=== PATIENT | male | born 1965 | race Caucasian/White ===

== ENCOUNTER 2018-03-17 19:14 | Emergency (ER) | payer SELFPAY ==
--- NOTE | 2018-03-17 19:55 | ERPHSYRPT ---
- History of Present Illness Time Seen by Provider: 03/17/18 19:40 Source: patient Exam Limitations: clinical condition Patient Subjective Stated Complaint: Urinary retention Triage Nursing Assessment: Patient ambulated back to ED and transferred self to bed. Patient A+O X 3. Patient's skin pink, warm and dry. Patient complains of urinary retension. Patient states he last voided at 0400 today. Patient also states he has an infection in his rectum that is the size of a golf ball and is scheduled to see Dr. Amol Benites on Tuesday. Patient was told by Dr. Plata today that if he is unable to urinate due to the infection pressing against his prostate he needs to come to ED and be assessed. Patient states his pain is a 4/ 10. Physician History: PATIENT HAS INABILITY TO URINATE SINCE 4AM TODAY. DENIES ABDOMINAL PAIN, FLANK PAIN OR FEVER. PRESENTLY BEING TREATED FOR PERIRECTAL ABSCESS WITH ANTIBIOTICS. Timing/Duration: today Activites at Onset: none Quality: other (HAS RECTAL PAIN ) Onset Location: other (RECTUM) Severity of Pain-Max: mild Severity of Pain-Current: mild Modifying Factors: Improves With: analgesics Associated Symptoms: other (UNABLE TO VOID) Sexual intercourse history: non-contributory Allergies/Adverse Reactions: shellfish derived Allergy (Verified 03/17/18 19:20) Hx Tetanus, Diphtheria Vaccination/Date Given: Yes (3 years ago) Hx Influenza Vaccination/Date Given: No Hx Pneumococcal Vaccination/Date Given: No Immunizations Up to Date: Yes - Past Medical History Pertinent Past Medical History: No - Past Surgical History Gastrointestinal: Hernia Repair Musculoskeletal: Orthopedic Surgery Other Surgical History: Left knee repair - Social History Smoking Status: Current every day smoker How long have you smoked: 30 Exposure to second hand smoke: Yes Drug Use: marijuana Patient Lives Alone: Yes - Review of Systems Constitutional: No Fever, No Chills Eyes: No Symptoms Ears, Nose, & Throat: No Symptoms Respiratory: No Symptoms, No Cough, No Dyspnea Cardiac: No Chest Pain, No Edema, No Syncope Abdominal/Gastrointestinal: No Abdominal Pain, No Nausea, No Vomiting, No Diarrhea Genitourinary Symptoms: Urinary Retention, No Dysuria Musculoskeletal: No Symptoms, No Back Pain, No Neck Pain Skin: No Rash Neurological: No Dizziness, No Focal Weakness, No Sensory Changes Psychological: No Symptoms Endocrine: No Symptoms All Other Systems: Reviewed and Negative - Nursing Vital Signs Nursing Vital Signs: Initial Vital Signs Temperature 99.4 F 03/17/18 19:22 Pulse Rate 107 H 03/17/18 19:22 Respiratory Rate 20 03/17/18 19:22 Blood Pressure 193/143 03/17/18 19:22 O2 Sat by Pulse Oximetry 95 03/17/18 19:22 Pain Scale Pain Intensity 4 - Physical Exam General Appearance: no apparent distress, alert Eye Exam: PERRL/EOMI Ears, Nose, Throat Exam: normal ENT inspection Neck Exam: normal inspection Respiratory Exam: normal breath sounds Cardiovascular Exam: regular rate/rhythm, normal heart sounds Gastrointestinal/Abdomen Exam: soft, normal bowel sounds (NONTENDER), distention (UP TO LEVEL OF UMBILICUS) Rectal Exam: normal rectal tone (THERE IS A PERIRECTAL SWELLING WITH TENDERNESS POSITION 3-6 OCLOCK POSITION) Male Genital Exam: normal genitalia Back Exam: normal inspection, No CVA tenderness Extremity Exam: normal inspection, normal range of motion, No pedal edema Neurologic Exam: alert, oriented x 3 Skin Exam: normal color SpO2 Interpretation: normal SpO2: 95 Ordered Tests: Active Orders 24 hr Category Date Time Status Catheter-Ebony Mccarty STAT Care 03/17/18 19:47 Active UA W/RFX UR CULTURE Stat Lab 03/17/18 20:02 Completed Lab/Rad Data: Laboratory Results 03/17/18 Range/Units 20:02 Urine Color YELLOW (YELLOW) Urine Appearance CLEAR (CLEAR) Urine pH 5.0 (5-6) Ur Specific [place] 1.017 (1.005-1.025) Urine Protein 100 (Negative) Urine Ketones SMALL (NEGATIVE) Urine Blood NEGATIVE (0-5) Xander/ul Urine Nitrite NEGATIVE (NEGATIVE) Urine Bilirubin NEGATIVE (NEGATIVE) Urine Urobilinogen NEGATIVE (0-1) mg/dL Ur Leukocyte Esterase NEGATIVE (NEGATIVE) Urine WBC (Auto) 0-2 (0-5) /HPF Urine RBC (Auto) NONE (0-2) /HPF U Epithel Cells (Auto) NONE (FEW) /HPF Urine Bacteria (Auto) NONE (NEGATIVE) /HPF Urine Mucus (Auto) SLIGHT (NEGATIVE) /HPF Urine Culture Reflexed NO (NO) Urine Glucose NEGATIVE (NEGATIVE) mg/dL - Progress Progress Note: 03/17/18 19:59 MCCARTY CATHETER INSERTION, 800ML URINE OUTPUT, LEG BAG APPLIED 03/17/18 20:39 Counseled pt/family regarding: diagnosis, need for follow-up - Departure Time of Disposition: 20:45 Departure Disposition: Home Clinical Impression: ACUTE URINARY RETENTION, PERIRECTAL ABSCESS Condition: Stable Critical Care Time: No Referrals: PAIGE PLATA [Primary Care Provider] - Additional Instructions: MAINTAIN MCCARTY WITH LEG BAG AND FOLLOWUP WITH PRIMARY CARE PROVIDER IN 3 DAYS. CONTINUE ANTIBIOTIC FOR PERIRECTAL ABSCESS. RETURN TO EMERGENCY FOR PROBLEMS.
[2018-03-17 20:31] LABS: Appearance CLEAR (CLEAR); Bilirubin NEGATIVE (NEGATIVE); Blood NEGATIVE Ery/ul (0-5); Glucose NEGATIVE (NEGATIVE); Ketones SMALL (NEGATIVE); Leukocyte Esterase NEGATIVE (NEGATIVE); Mucus SLIGHT /HPF (NEGATIVE); Nitrite NEGATIVE (NEGATIVE); Protein,Urine Dip 100 (Negative); Specific Gravity 1.017 (1.005-1.025); Urobilinogen NEGATIVE mg/dL (0-1); WBC 0-2 /HPF (0-5)
[2018-03-17 20:54] VITALS: BP 160/116; PULSE 100; O2SAT 98
== END 2018-03-17 20:55 | disposition home or self-care (01) ==
LOC: EDBD 19:14 → ED 19:14
DX: R33.9 Retention of urine, unspecified (principal); K61.1 Rectal abscess; K62.89 Other specified diseases of anus and rectum; Z72.0 Tobacco use; F12.90 Cannabis use, unspecified, uncomplicated
CPT/HCPCS: 51702; 81001; 99284

== ENCOUNTER 2021-07-12 23:16 | Observation (INO) | payer OTHER ==
[2021-07-12] MEDS ORDERED: Sodium Chloride 0.9% 1000 ML 1,000 ML IV SCH (23:45)
[2021-07-12] MEDS ORDERED: DUONEB 0.5-3 MG/3 ml Neb IH ONE (23:51)
[2021-07-12] MEDS ORDERED: solu-MEDROL 125 MG, Sterile H2O 10 ml 2 ML IV ONE ×2 (23:51)
--- NOTE | 2021-07-12 23:51 | ERPHSYRPT ---
- History of Present Illness Time Seen by Provider: 07/12/21 23:49 Source: patient Exam Limitations: no limitations Patient Subjective Stated Complaint: pt states he is short of breath for last 3 hours, states he is a smoker and has copd, was taking a nap and woke up short of breath Triage Nursing Assessment: pt is using pursed lip breathing. states he has no pain at this time. oxygen 96 % on two liters. Physician History: Hx COPD with increased SOBreath tonight. no CP. Whheezes bilaterally Timing/Duration: today Severity of Dyspnea-Max: moderate Severity of Dyspnea-Current: moderate Possible Cause: occasional episodes Modifying Factors: Improves With: albuterol nebulizer Allergies/Adverse Reactions: shellfish derived Allergy (Verified 03/17/18 19:20) Hx Tetanus, Diphtheria Vaccination/Date Given: No Hx Influenza Vaccination/Date Given: No Hx Pneumococcal Vaccination/Date Given: No Immunizations Up to Date: No Travel Risk - International Travel Have you traveled outside of the country in past 3 weeks: No - Coronavirus Screening Are you exhibiting any of the following symptoms?: No Close contact with a COVID-19 positive Pt in past 14-21 Days: No - Vaccine Status Have you recieved a Covid-19 vaccination: Yes Ar[employer]ologist: [employer] - Review of Systems Constitutional: No Fever, No Chills Eyes: No Symptoms Ears, Nose, & Throat: No Symptoms Respiratory: Cough, Dyspnea Cardiac: No Chest Pain, No Edema, No Syncope Abdominal/Gastrointestinal: No Abdominal Pain, No Nausea, No Vomiting, No Diarrhea Genitourinary Symptoms: No Dysuria Musculoskeletal: No Back Pain, No Neck Pain Skin: No Rash Neurological: No Dizziness, No Focal Weakness, No Sensory Changes Psychological: No Symptoms Endocrine: No Symptoms All Other Systems: Reviewed and Negative - Past Medical History Pertinent Past Medical History: No - Past Surgical History Gastrointestinal: Hernia Repair Musculoskeletal: Orthopedic Surgery Other Surgical History: Left knee repair - Social History Smoking Status: Current every day smoker How long have you smoked: 30 Exposure to second hand smoke: Yes Drug Use: marijuana Patient Lives Alone: Yes - Nursing Vital Signs Nursing Vital Signs: Initial Vital Signs Temperature 97.9 F 07/12/21 23:17 Pulse Rate 121 H 07/12/21 23:17 Respiratory Rate 18 07/12/21 23:17 Blood Pressure 166/124 07/12/21 23:17 O2 Sat by Pulse Oximetry 96 07/12/21 23:17 Pain Scale Pain Intensity 0 - Physical Exam General Appearance: no apparent distress, alert Eye Exam: PERRL/EOMI Neck Exam: normal inspection, supple Respiratory Exam: airway intact, accessory muscle use, wheezing Cardiovascular/Chest Exam: normal heart sounds, regular rate/rhythm Abdominal/Gastrointestinal Exam: soft, No tenderness, No distention, No mass Extremity Exam: non-tender, normal range of motion, normal inspection, no calf tenderness, no pedal edema Peripheral Pulses Exam: carotid (R): 2+, carotid (L): 2+, femoral (R): 2+, femoral (L): 2+, dorsalis-pedis (R): 2+, dorsalis-pedis (L): 2+ Neurologic Exam: alert, oriented x 3, cooperative, carburetor rebuilder II-XII nml as tested, sensation nml, No motor deficits Skin Exam: normal color, warm, No dry SpO2 Interpretation: borderline oxygenation SpO2: 96 O2 Delivery: Nasal Cannula - Course Nursing assessment & vital signs reviewed: Yes EKG Interpreted by Me: Sinus Tach, LAFB, Right Bundle Branch Block, Non-specific ST Changes - CT Exams Chest CT Interpretation: Tele-radiologist Report, Other (ground glass and cavitary lesionRUL. emphysema) Ordered Tests: Active Orders 24 hr Category Date Time Status Sample Wrapper STAT Care 07/12/21 23:52 Active EKG-ER Only STAT Care 07/12/21 23:51 Active IV Insertion STAT Care 07/12/21 23:51 Active Oxygen-ED Only Venti-Mask 24% Care 07/12/21 23:51 Active CHEST WITHOUT CONTRAST [CT] Routine Exams 07/13/21 00:38 Taken CBC W DIFF Stat Lab 07/12/21 23:56 Completed CMP Stat Lab 07/12/21 23:56 Completed NT PRO BNP Stat Lab 07/12/21 23:56 Completed TROPONIN Q3H Lab 07/12/21 23:56 Completed TROPONIN Q3H Lab 07/13/21 02:52 Ordered TROPONIN Q3H Lab 07/13/21 05:52 Ordered TROPONIN Q3H Lab 07/13/21 08:52 Ordered TROPONIN Q3H Lab 07/13/21 11:52 Ordered VENOUS BLOOD GAS Stat Lab 07/12/21 23:52 Completed Respiratory Therapy Assessment DAILY RT 07/13/21 00:04 Active Medication Summary Generic Name Dose Route Start Last Admin Trade Name Karely PRN Reason Stop Dose Admin Sodium Chloride 1,000 mls @ 100 mls/hr 07/12/21 23:45 07/13/21 00:21 Sodium Chloride 0.9% 1000 Ml IV 08/11/21 23:44 100 mls/hr .Q10H MICHELLE Administration Discontinued Medications Generic Name Dose Route Start Last Admin Trade Name Karely PRN Reason Stop Dose Admin Albuterol/Ipratropium 3 ml 07/12/21 23:51 07/13/21 00:02 Ipratropium/Albuterol Sulfate 3 Ml Ampul.Neb IH 07/12/21 23:52 3 ml STAT ONE Administration Albuterol/Ipratropium Confirm 07/13/21 00:00 Ipratropium/Albuterol Sulfate 3 Ml Ampul.Neb Administered 07/13/21 00:01 Dose 3 ml IH .STK-MED ONE Methylprednisolone Sodium 0 mg 07/12/21 23:51 07/13/21 00:20 Succinate 125 mg/ Sterile IV 07/12/21 23:52 125 mg Water 2 ml STAT ONE Administration Lorazepam Confirm 07/13/21 01:40 Lorazepam 1 Mg Tablet Administered 07/13/21 01:41 Dose 1 mg .ROUTE .STK-MED ONE Lorazepam 1 mg 07/13/21 01:43 07/13/21 01:44 Lorazepam 1 Mg Tablet PO 07/13/21 01:44 1 mg STAT ONE Administration Methylprednisolone Sodium Succinate Confirm 07/13/21 00:18 Methylprednis Sod Succ 125 Mg/2 Ml Vial Administered 07/13/21 00:19 Dose 125 mg .ROUTE .STK-MED ONE Sterile Water Confirm 07/13/21 00:18 Water For Injection,Sterile 10 Ml Vial Administered 07/13/21 00:19 Dose 10 ml IJ .STK-MED ONE Lab/Rad Data: Laboratory Result Diagrams 07/12/21 23:56 07/12/21 23:56 Laboratory Results 07/13/21 07/12/21 07/12/21 Range/Units 00:51 23:56 23:56 WBC (4.0-10.5) x10^3/uL RBC (4.1-5.6) x10^6/uL Hgb (12.5-18.0) g/dL Hct (42-50) % MCV (78-100) fL MCH (26-32) pg MCHC (32-36) g/dL RDW (11.5-14.0) % Plt Count (150-450) x10^3/uL MPV (7.5-11.0) fL Gran % (36.0-66.0) % Immature Gran % (Auto) (0.00-0.4) % Nucleat RBC Rel Count (0.00-0.1) % Eos # (Auto) (0-0.5) x10^3/uL Immature Gran # (Auto) (0.00-0.03) x10^3u/L Absolute Lymphs (auto) (1.0-4.6) x10^3/uL Absolute Monos (auto) (0.0-1.3) x10^3/uL Absolute Nucleated RBC (0.00-0.01) x10^3u/L Lymphocytes % (24.0-44.0) % Monocytes % (0.0-12.0) % Eosinophils % (0.00-5.0) % Basophils % (0.0-0.4) % Absolute Granulocytes (1.4-6.9) x10^3/uL Basophils # (0-0.4) x10^3/uL pO2/FiO2 Ratio % VBG pH (7.32-7.42) VBG pCO2 at Pat Temp (42-55) mm/Hg VBG pO2 at Pat Temp (25-40) mm/Hg VBG HCO3 (22-28) meq/L VBG O2 Sat (Hans) (95-100) VBG Base Excess (-2.0-2.0) VBG Hemoglobin VBG Carboxyhemoglobin (0.0-6.9) % T HGB POC Potassium (3.5-5.1) Sodium 138 (137-145) mmol/L Potassium 4.4 (3.5-5.1) mmol/L Chloride 96 L (98-107) mmol/L Carbon Dioxide 28 (22-30) mmol/L Anion Gap 17.4 H (5-15) MEQ/L BUN 2 L (9-20) mg/dL Creatinine 0.40 L (0.66-1.25) mg/dL Estimated GFR > 60.0 ML/MIN Glucose 108 H (74-106) mg/dL Calcium 8.9 (8.4-10.2) mg/dL Total Bilirubin 0.60 (0.2-1.3) mg/dL AST 42 (17-59) U/L ALT 29 (0-50) U/L Alkaline Phosphatase 104 (38-126) U/L Troponin I < 0.012 (0.000-0.034) ng/mL NT-Pro-B Natriuret Pep 281 (0-900) pg/mL Serum Total Protein 6.4 (6.3-8.2) g/dL Albumin 3.8 (3.5-5.0) g/dL Influenza Type A Ag NEGATIVE (NEGATIVE) Influenza Type B Ag NEGATIVE (NEGATIVE) RSV (PCR) NEGATIVE (Negative) SARS-CoV-2 (PCR) NEGATIVE (NEGATIVE) 07/12/21 07/12/21 Range/Units 23:56 23:52 WBC 10.5 (4.0-10.5) x10^3/uL RBC 5.10 (4.1-5.6) x10^6/uL Hgb 16.5 (12.5-18.0) g/dL Hct 48.7 (42-50) % MCV 95.5 (78-100) fL MCH 32.4 H (26-32) pg MCHC 33.9 (32-36) g/dL RDW 12.8 (11.5-14.0) % Plt Count 258 (150-450) x10^3/uL MPV 8.6 (7.5-11.0) fL Gran % 73.7 H (36.0-66.0) % Immature Gran % (Auto) 0.4 (0.00-0.4) % Nucleat RBC Rel Count 0.0 (0.00-0.1) % Eos # (Auto) 0.06 (0-0.5) x10^3/uL Immature Gran # (Auto) 0.04 H (0.00-0.03) x10^3u/L Absolute Lymphs (auto) 1.57 (1.0-4.6) x10^3/uL Absolute Monos (auto) 1.02 (0.0-1.3) x10^3/uL Absolute Nucleated RBC 0.00 (0.00-0.01) x10^3u/L Lymphocytes % 14.9 L (24.0-44.0) % Monocytes % 9.7 (0.0-12.0) % Eosinophils % 0.6 (0.00-5.0) % Basophils % 0.7 (0.0-0.4) % Absolute Granulocytes 7.78 H (1.4-6.9) x10^3/uL Basophils # 0.07 (0-0.4) x10^3/uL pO2/FiO2 Ratio 21.0 % VBG pH 7.47 H (7.32-7.42) VBG pCO2 at Pat Temp 42 (42-55) mm/Hg VBG pO2 at Pat Temp 52 H (25-40) mm/Hg VBG HCO3 30.6 H* (22-28) meq/L VBG O2 Sat (Hans) 88.9 L (95-100) VBG Base Excess 6.2 H (-2.0-2.0) VBG Hemoglobin 17.4 VBG Carboxyhemoglobin 9.4 H* (0.0-6.9) % T HGB POC Potassium 4.7 (3.5-5.1) Sodium (137-145) mmol/L Potassium (3.5-5.1) mmol/L Chloride (98-107) mmol/L Carbon Dioxide (22-30) mmol/L Anion Gap (5-15) MEQ/L BUN (9-20) mg/dL Creatinine (0.66-1.25) mg/dL Estimated GFR ML/MIN Glucose (74-106) mg/dL Calcium (8.4-10.2) mg/dL Total Bilirubin (0.2-1.3) mg/dL AST (17-59) U/L ALT (0-50) U/L Alkaline Phosphatase (38-126) U/L Troponin I (0.000-0.034) ng/mL NT-Pro-B Natriuret Pep (0-900) pg/mL Serum Total Protein (6.3-8.2) g/dL Albumin (3.5-5.0) g/dL Influenza Type A Ag (NEGATIVE) Influenza Type B Ag (NEGATIVE) RSV (PCR) (Negative) SARS-CoV-2 (PCR) (NEGATIVE) - Progress Progress: improved, re-examined Air Movement: good Progress Note: 07/13/21 02:15 discussed with pt and Dr. Nance and all agree best to place pt in on obs. with new O2 requirement. Blood Culture(s) Obtained: No Antibiotics given: No Discussed with : Rosemary Will see patient in: hospital (observation) Counseled pt/family regarding: lab results, diagnosis, need for follow-up, rad results - Departure Departure Disposition: Home Clinical Impression: COPD exacerbation, RUL cavitary lesion Condition: Good Critical Care Time: No Referrals: MARINE DENSON MD [Primary Care Provider] - Follow up/PCP as directed Instructions: Chronic Obstructive Pulmonary Disease
[2021-07-13] LABS: Absolute Neutrophil Ct (ANC) 7.78 x10^3/uL (1.4-6.9); Basophil (Absolute #) 0.07 x10^3/uL (0-0.4); Eosinophil % 0.6 % (0.00-5.0); Eosinophil (Absolute #) 0.06 x10^3/uL (0-0.5); Hematocrit 48.7 % (42-50); Hemoglobin 16.5 g/dL (12.5-18.0); Lymphocyte (Absolute #) 1.57 x10^3/uL (1.0-4.6); Lymphocytes % 14.9 % (24.0-44.0); Mean Cell Volume 95.5 fL (78-100); Mean Corpuscular Hemoglobin 32.4 pg (26-32); Mean Corpuscular Hgb Concent. 33.9 g/dL (32-36); Mean Platelet Volume 8.6 fL (7.5-11.0); Monocyte (Absolute #) 1.02 x10^3/uL (0.0-1.3); Monocytes % 9.7 % (0.0-12.0); Neutrophil % 73.7 % (36.0-66.0); Platelet Count 258 x10^3/uL (150-450); Red Cell Distribution Width 12.8 % (11.5-14.0); White Blood Count 10.5 x10^3/uL (4.0-10.5)
[2021-07-13] MEDS ORDERED: DUONEB 0.5-3 MG/3 ml Neb IH ONE
[2021-07-13 00:14] LABS: ALBUMIN 3.8 g/dL (3.5-5.0); ALKALINE PHOSPHATASE 104 U/L (38-126); ANION GAP 17.4 MEQ/L (5-15); CHLORIDE 96 mmol/L (98-107); Calcium 8.9 mg/dL (8.4-10.2); Carbon Dioxide 28 mmol/L (22-30); EST GLOMERULAR FILTRATION RATE > 60.0 ML/MIN; Glucose 108 mg/dL (74-106); NT PRO BNP 281 pg/mL (0-900); Potassium 4.4 mmol/L (3.5-5.1); SGOT/AST 42 U/L (17-59); SGPT/ALT 29 U/L (0-50); SODIUM 138 mmol/L (137-145); Total Protein 6.4 g/dL (6.3-8.2)
[2021-07-13] MEDS ORDERED: solu-MEDROL ONE ×2 (00:18→05:03)
[2021-07-13] MEDS ORDERED: Sodium Chloride 0.9% 1000 ML 1,000 ML ONE (00:18)
[2021-07-13] MEDS ORDERED: Sterile H2O 10 ml IJ ONE ×2 (00:18→05:04)
[2021-07-13 00:19] LABS: VBG BASE EXCESS 6.2 (-2.0-2.0); VBG HCO3- 30.6 meq/L (22-28); VBG HEMOGLOBIN 17.4; VBG O2 SATURATION 88.9 (95-100); VBG POTASSIUM 4.7 (3.5-5.1); VBG pH 7.47 (7.32-7.42)
[2021-07-13 00:20] LABS: VBG CARBOXYHEMOGLOBIN 9.4 % T HGB (0.0-6.9)
[2021-07-13 00:27] LABS: BLOOD UREA NITROGEN 2 mg/dL (9-20)
[2021-07-13 01:30] LABS: INFLUENZA A NEGATIVE (NEGATIVE); INFLUENZA B NEGATIVE (NEGATIVE); RESPIRATORY SYNCTIAL VIRUS NEGATIVE (Negative); SARS-CoV-2 Xpert Express NEGATIVE (NEGATIVE)
[2021-07-13] MEDS ORDERED: Ativan 1 MG ONE (01:40)
[2021-07-13] MEDS ORDERED: Ativan 1 MG PO ONE (01:43)
[2021-07-13] MEDS ORDERED: HUMULIN R SQ PRN (02:50)
[2021-07-13 02:53] LABS: Appearance CLEAR (CLEAR); Bilirubin NEGATIVE (NEGATIVE); Glucose NEGATIVE (NEGATIVE); Ketones SMALL-15 (NEGATIVE); Mucus SLIGHT /HPF (NEGATIVE); RBC TRACE-INTACT Ery/ul (0-5); Specific Gravity 1.025 (1.005-1.025); WBC 0-2 /HPF (0-5)
[2021-07-13 02:54] LABS: Bacteria NONE SEEN /HPF (NEGATIVE); Dipstick done @ ? MAIN LAB; Nitrite NEGATIVE (NEGATIVE); Protein,Urine Dip >=300 (Negative); Urine Cultured Indicated? YES; Urobilinogen 0.2 mg/dL (0-1)
[2021-07-13] MEDS: DUONEB 0.5-3 MG/3 ml Neb IH SCH ×6 (03:59→23:23)
[2021-07-13] MEDS ORDERED: Sodium Chloride 100ML MINI-BAG PLUS 0 ML IV ONE (05:04)
[2021-07-13] MEDS ORDERED: PIPERACILLIN/TAZOBACTAM IV ONE ×2 (05:04→05:56)
[2021-07-13] MEDS: solu-MEDROL 60 MG, Sterile H2O 10 ml 2 ML IV SCH ×6 (05:54→17:55)
[2021-07-13] MEDS ORDERED: Sodium Chloride 100ML MINI-BAG PLUS 100 ML IV ONE (05:56)
[2021-07-13] MEDS: PIPERACILLIN/TAZOBACTAM 4.5 GM in Sodium Chloride 100ML MINI-BAG PLUS 100 ML IV SCH ×3 (06:02→21:19)
[2021-07-13] MEDS: Advair Hfa 115/21 Common canister IH SCH ×2 (06:44→19:18)
[2021-07-13] MEDS: Ativan 2 MG/1 ML VIAL IV PRN ×5 (06:55→21:27)
--- NOTE | 2021-07-13 08:08 | XRAY ---
Indication: Short of breath and shaking. Multiple contiguous axial images obtained through the chest without contrast. Comparison: None Moderate diffuse pulmonary emphysema. Right perihilar patchy groundglass airspace disease greatest in the upper lobe. A more focal 3.5 x 1.8 cm right upper lobe noncalcified nodule with tiny cavitation and spiculated margins worrisome for malignancy versus infection. Scattered peripheral fibrosis/scarring. No effusion or pneumothorax. Heart not enlarged. Aorta is normal course and caliber. No pathologic mediastinal lymphadenopathy. Bony thorax intact with incidental old sternal fracture. Limited upper abdomen demonstrates 3.0 x 3.7 cm right and 1.4 x 1.4 cm left adrenal adenomas. Incidental fatty liver. Impression: 1. Right perihilar groundglass airspace disease. Suspicious right upper lobe noncalcified nodule as detailed worrisome for malignancy versus infection. 2. Pulmonary emphysema with scattered fibrosis/scarring. 3. Incidental bilateral adrenal adenomas, and fatty liver. Comment: Preliminary interpretation made by C. No critical discrepancy.
[2021-07-13] MEDS: Pepcid 20 MG VIAL IV SCH ×2 (10:03→21:19)
[2021-07-13] MEDS: Zithromax 500 MG/ 250 ML NaCl Premix 500 MG/250 ML IVPB IV SCH (10:04)
--- NOTE | 2021-07-13 13:40 | PCM.HP ---
History of Present Illness - Chief Complaint Chief Complaint: COPD Exacerbation History of Present Illness: is a 56 year old male patient of Dr Fitzgerald who presented to ER with shortness of breath. ER eval dg COPD exacerbation and Suspicious lung nodule RUL.Cough is productive of thick milky mucus and has improved with IV steroids and antibiotics. Appetite is good but has nausea when coughs and gags. PMHx includes - Medications & Allergies Home Medications: Home Medication List Albuterol Sulfate [Proair Respiclick] 4 puffs IH Q4H PRN PRN 07/13/21 [History Confirmed 07/13/21] Aspirin [Aspirin EC] 81 mg PO DAILY 07/13/21 [History Confirmed 07/13/21] Diltiazem HCl [Cardizem Cd] 240 mg PO DAILY 07/13/21 [History Confirmed 07/13/21] Fluticasone/Umeclidin/Vilanter [Trelegy Ellipta 200-62.5-25] 1 puff IH DAILY 07/13/21 [History Confirmed 07/13/21] Montelukast Sodium 10 mg [Singulair 10 MG] 10 mg PO DAILY 07/13/21 [History Confirmed 07/13/21] Allergies/Adverse Reactions: Allergies Allergy/AdvReac Type Severity Reaction Status Date / Time shellfish derived Allergy Severe Hives Verified 07/13/21 03:27 - Past Medical History Past Medical History: Yes Neurological History: No Pertinent History ENT History: No Pertinent History Cardiac History: Hypertension Respiratory History: Bronchitis, COPD Endocrine Medical History: No Pertinent History Musculoskelatal History: No Pertinent History GI Medical History: No Pertinent History History: No Pertinent History Pyscho-Social History: No Pertinent History Male Reproductive Disorders: No Pertinent History - Past Surgical History Past Surgical History: Yes Neuro Surgical History: No Pertinent History Cardiac History: No Pertinent History Respiratory Surgery: No Pertinent History GI Surgical History: Hernia Repair Genitourinary Surgical Hx: No Pertinent History Musculskeletal Surgical Hx: Orthopedic Surgery Male Surgical History: No Pertinent History Other Surgical History: Left knee repair - Social History Smoking Status: Current every day smoker How long have you smoked: 40 years Exposure to second hand smoke: Yes Alcohol: Daily Drug Use: marijuana - Physical Exam Vital Signs: Vital Signs - 24 hr Temp Pulse Resp BP Pulse Ox 07/13/21 11:31 98.0 F 103 H 16 152/77 96 07/13/21 10:39 112 H 24 99 07/13/21 09:58 103 H 22 07/13/21 07:42 97.9 F 95 H 16 181/78 94 L 07/13/21 06:55 100 H 30 H 07/13/21 06:51 90 22 95 07/13/21 03:59 98 H 24 95 07/13/21 03:16 97.8 F 100 H 20 212/98 93 L 07/13/21 03:00 97 07/13/21 02:17 96 07/13/21 02:00 102 H 21 149/100 97 07/13/21 01:00 103 H 21 147/119 95 07/13/21 00:17 110 H 18 147/119 95 07/13/21 00:04 108 H 24 95 07/12/21 23:17 97.9 F 121 H 22 166/124 96 Results - Labs Lab/Micro Results: Lab Results-Last 24 Hours 07/12/21 07/12/21 07/12/21 Range/Units 23:52 23:56 23:56 WBC 10.5 (4.0-10.5) x10^3/uL RBC 5.10 (4.1-5.6) x10^6/uL Hgb 16.5 (12.5-18.0) g/dL Hct 48.7 (42-50) % MCV 95.5 (78-100) fL MCH 32.4 H (26-32) pg MCHC 33.9 (32-36) g/dL RDW 12.8 (11.5-14.0) % Plt Count 258 (150-450) x10^3/uL MPV 8.6 (7.5-11.0) fL Gran % 73.7 H (36.0-66.0) % Immature Gran % (Auto) 0.4 (0.00-0.4) % Nucleat RBC Rel Count 0.0 (0.00-0.1) % Eos # (Auto) 0.06 (0-0.5) x10^3/uL Immature Gran # (Auto) 0.04 H (0.00-0.03) x10^3u/L Absolute Lymphs (auto) 1.57 (1.0-4.6) x10^3/uL Absolute Monos (auto) 1.02 (0.0-1.3) x10^3/uL Absolute Nucleated RBC 0.00 (0.00-0.01) x10^3u/L Lymphocytes % 14.9 L (24.0-44.0) % Monocytes % 9.7 (0.0-12.0) % Eosinophils % 0.6 (0.00-5.0) % Basophils % 0.7 (0.0-0.4) % Absolute Granulocytes 7.78 H (1.4-6.9) x10^3/uL Basophils # 0.07 (0-0.4) x10^3/uL pO2/FiO2 Ratio 21.0 % VBG pH 7.47 H (7.32-7.42) VBG pCO2 at Pat Temp 42 (42-55) mm/Hg VBG pO2 at Pat Temp 52 H (25-40) mm/Hg VBG HCO3 30.6 H* (22-28) meq/L VBG O2 Sat (Hans) 88.9 L (95-100) VBG Base Excess 6.2 H (-2.0-2.0) VBG Hemoglobin 17.4 VBG Carboxyhemoglobin 9.4 H* (0.0-6.9) % T HGB POC Potassium 4.7 (3.5-5.1) Sodium 138 (137-145) mmol/L Potassium 4.4 (3.5-5.1) mmol/L Chloride 96 L (98-107) mmol/L Carbon Dioxide 28 (22-30) mmol/L Anion Gap 17.4 H (5-15) MEQ/L BUN 2 L (9-20) mg/dL Creatinine 0.40 L (0.66-1.25) mg/dL Estimated GFR > 60.0 ML/MIN Glucose 108 H (74-106) mg/dL Calcium 8.9 (8.4-10.2) mg/dL Total Bilirubin 0.60 (0.2-1.3) mg/dL AST 42 (17-59) U/L ALT 29 (0-50) U/L Alkaline Phosphatase 104 (38-126) U/L Troponin I (0.000-0.034) ng/mL NT-Pro-B Natriuret Pep 281 (0-900) pg/mL Serum Total Protein 6.4 (6.3-8.2) g/dL Albumin 3.8 (3.5-5.0) g/dL Urinalys Dipstick Clnc Urine Color (YELLOW) Urine Appearance (CLEAR) Urine pH (5-6) Ur Specific [place] (1.005-1.025) POC Urine Protein Conf (Negative) Urine Ketones (NEGATIVE) Urine Nitrite (NEGATIVE) Urine Bilirubin (NEGATIVE) Urine Urobilinogen (0-1) mg/dL Urine Leukocytes (NEGATIVE) Urine WBC (Auto) (0-5) /HPF Urine RBC (Auto) (0-2) /HPF U Epithel Cells (Auto) (FEW) /HPF Urine Bacteria (Auto) (NEGATIVE) /HPF Urine RBC (0-5) Xander/ul Urine Mucus (Auto) (NEGATIVE) /HPF Ur Culture Indicated? Urine Glucose (NEGATIVE) mg/dL Influenza Type A Ag (NEGATIVE) Influenza Type B Ag (NEGATIVE) RSV (PCR) (Negative) SARS-CoV-2 (PCR) (NEGATIVE) 07/12/21 07/13/21 07/13/21 Range/Units 23:56 00:51 02:17 WBC (4.0-10.5) x10^3/uL RBC (4.1-5.6) x10^6/uL Hgb (12.5-18.0) g/dL Hct (42-50) % MCV (78-100) fL MCH (26-32) pg MCHC (32-36) g/dL RDW (11.5-14.0) % Plt Count (150-450) x10^3/uL MPV (7.5-11.0) fL Gran % (36.0-66.0) % Immature Gran % (Auto) (0.00-0.4) % Nucleat RBC Rel Count (0.00-0.1) % Eos # (Auto) (0-0.5) x10^3/uL Immature Gran # (Auto) (0.00-0.03) x10^3u/L Absolute Lymphs (auto) (1.0-4.6) x10^3/uL Absolute Monos (auto) (0.0-1.3) x10^3/uL Absolute Nucleated RBC (0.00-0.01) x10^3u/L Lymphocytes % (24.0-44.0) % Monocytes % (0.0-12.0) % Eosinophils % (0.00-5.0) % Basophils % (0.0-0.4) % Absolute Granulocytes (1.4-6.9) x10^3/uL Basophils # (0-0.4) x10^3/uL pO2/FiO2 Ratio % VBG pH (7.32-7.42) VBG pCO2 at Pat Temp (42-55) mm/Hg VBG pO2 at Pat Temp (25-40) mm/Hg VBG HCO3 (22-28) meq/L VBG O2 Sat (Hans) (95-100) VBG Base Excess (-2.0-2.0) VBG Hemoglobin VBG Carboxyhemoglobin (0.0-6.9) % T HGB POC Potassium (3.5-5.1) Sodium (137-145) mmol/L Potassium (3.5-5.1) mmol/L Chloride (98-107) mmol/L Carbon Dioxide (22-30) mmol/L Anion Gap (5-15) MEQ/L BUN (9-20) mg/dL Creatinine (0.66-1.25) mg/dL Estimated GFR ML/MIN Glucose (74-106) mg/dL Calcium (8.4-10.2) mg/dL Total Bilirubin (0.2-1.3) mg/dL AST (17-59) U/L ALT (0-50) U/L Alkaline Phosphatase (38-126) U/L Troponin I < 0.012 (0.000-0.034) ng/mL NT-Pro-B Natriuret Pep (0-900) pg/mL Serum Total Protein (6.3-8.2) g/dL Albumin (3.5-5.0) g/dL Urinalys Dipstick Clnc MAIN LAB Urine Color YELLOW (YELLOW) Urine Appearance CLEAR (CLEAR) Urine pH 7.0 (5-6) Ur Specific [place] 1.025 (1.005-1.025) POC Urine Protein Conf >=300 (Negative) Urine Ketones SMALL-15 (NEGATIVE) Urine Nitrite NEGATIVE (NEGATIVE) Urine Bilirubin NEGATIVE (NEGATIVE) Urine Urobilinogen 0.2 (0-1) mg/dL Urine Leukocytes NEGATIVE (NEGATIVE) Urine WBC (Auto) 0-2 (0-5) /HPF Urine RBC (Auto) NONE (0-2) /HPF U Epithel Cells (Auto) NONE (FEW) /HPF Urine Bacteria (Auto) NONE SEEN (NEGATIVE) /HPF Urine RBC TRACE-INTACT (0-5) Xander/ul Urine Mucus (Auto) SLIGHT (NEGATIVE) /HPF Ur Culture Indicated? YES Urine Glucose NEGATIVE (NEGATIVE) mg/dL Influenza Type A Ag NEGATIVE (NEGATIVE) Influenza Type B Ag NEGATIVE (NEGATIVE) RSV (PCR) NEGATIVE (Negative) SARS-CoV-2 (PCR) NEGATIVE (NEGATIVE) 07/13/21 07/13/21 07/13/21 Range/Units 02:44 05:55 08:45 WBC (4.0-10.5) x10^3/uL RBC (4.1-5.6) x10^6/uL Hgb (12.5-18.0) g/dL Hct (42-50) % MCV (78-100) fL MCH (26-32) pg MCHC (32-36) g/dL RDW (11.5-14.0) % Plt Count (150-450) x10^3/uL MPV (7.5-11.0) fL Gran % (36.0-66.0) % Immature Gran % (Auto) (0.00-0.4) % Nucleat RBC Rel Count (0.00-0.1) % Eos # (Auto) (0-0.5) x10^3/uL Immature Gran # (Auto) (0.00-0.03) x10^3u/L Absolute Lymphs (auto) (1.0-4.6) x10^3/uL Absolute Monos (auto) (0.0-1.3) x10^3/uL Absolute Nucleated RBC (0.00-0.01) x10^3u/L Lymphocytes % (24.0-44.0) % Monocytes % (0.0-12.0) % Eosinophils % (0.00-5.0) % Basophils % (0.0-0.4) % Absolute Granulocytes (1.4-6.9) x10^3/uL Basophils # (0-0.4) x10^3/uL pO2/FiO2 Ratio % VBG pH (7.32-7.42) VBG pCO2 at Pat Temp (42-55) mm/Hg VBG pO2 at Pat Temp (25-40) mm/Hg VBG HCO3 (22-28) meq/L VBG O2 Sat (Hans) (95-100) VBG Base Excess (-2.0-2.0) VBG Hemoglobin VBG Carboxyhemoglobin (0.0-6.9) % T HGB POC Potassium (3.5-5.1) Sodium (137-145) mmol/L Potassium (3.5-5.1) mmol/L Chloride (98-107) mmol/L Carbon Dioxide (22-30) mmol/L Anion Gap (5-15) MEQ/L BUN (9-20) mg/dL Creatinine (0.66-1.25) mg/dL Estimated GFR ML/MIN Glucose (74-106) mg/dL Calcium (8.4-10.2) mg/dL Total Bilirubin (0.2-1.3) mg/dL AST (17-59) U/L ALT (0-50) U/L Alkaline Phosphatase (38-126) U/L Troponin I 0.013 0.012 < 0.012 (0.000-0.034) ng/mL NT-Pro-B Natriuret Pep (0-900) pg/mL Serum Total Protein (6.3-8.2) g/dL Albumin (3.5-5.0) g/dL Urinalys Dipstick Clnc Urine Color (YELLOW) Urine Appearance (CLEAR) Urine pH (5-6) Ur Specific [place] (1.005-1.025) POC Urine Protein Conf (Negative) Urine Ketones (NEGATIVE) Urine Nitrite (NEGATIVE) Urine Bilirubin (NEGATIVE) Urine Urobilinogen (0-1) mg/dL Urine Leukocytes (NEGATIVE) Urine WBC (Auto) (0-5) /HPF Urine RBC (Auto) (0-2) /HPF U Epithel Cells (Auto) (FEW) /HPF Urine Bacteria (Auto) (NEGATIVE) /HPF Urine RBC (0-5) Xander/ul Urine Mucus (Auto) (NEGATIVE) /HPF Ur Culture Indicated? Urine Glucose (NEGATIVE) mg/dL Influenza Type A Ag (NEGATIVE) Influenza Type B Ag (NEGATIVE) RSV (PCR) (Negative) SARS-CoV-2 (PCR) (NEGATIVE) 07/13/21 Range/Units 12:10 WBC (4.0-10.5) x10^3/uL RBC (4.1-5.6) x10^6/uL Hgb (12.5-18.0) g/dL Hct (42-50) % MCV (78-100) fL MCH (26-32) pg MCHC (32-36) g/dL RDW (11.5-14.0) % Plt Count (150-450) x10^3/uL MPV (7.5-11.0) fL Gran % (36.0-66.0) % Immature Gran % (Auto) (0.00-0.4) % Nucleat RBC Rel Count (0.00-0.1) % Eos # (Auto) (0-0.5) x10^3/uL Immature Gran # (Auto) (0.00-0.03) x10^3u/L Absolute Lymphs (auto) (1.0-4.6) x10^3/uL Absolute Monos (auto) (0.0-1.3) x10^3/uL Absolute Nucleated RBC (0.00-0.01) x10^3u/L Lymphocytes % (24.0-44.0) % Monocytes % (0.0-12.0) % Eosinophils % (0.00-5.0) % Basophils % (0.0-0.4) % Absolute Granulocytes (1.4-6.9) x10^3/uL Basophils # (0-0.4) x10^3/uL pO2/FiO2 Ratio % VBG pH (7.32-7.42) VBG pCO2 at Pat Temp (42-55) mm/Hg VBG pO2 at Pat Temp (25-40) mm/Hg VBG HCO3 (22-28) meq/L VBG O2 Sat (Hans) (95-100) VBG Base Excess (-2.0-2.0) VBG Hemoglobin VBG Carboxyhemoglobin (0.0-6.9) % T HGB POC Potassium (3.5-5.1) Sodium (137-145) mmol/L Potassium (3.5-5.1) mmol/L Chloride (98-107) mmol/L Carbon Dioxide (22-30) mmol/L Anion Gap (5-15) MEQ/L BUN (9-20) mg/dL Creatinine (0.66-1.25) mg/dL Estimated GFR ML/MIN Glucose (74-106) mg/dL Calcium (8.4-10.2) mg/dL Total Bilirubin (0.2-1.3) mg/dL AST (17-59) U/L ALT (0-50) U/L Alkaline Phosphatase (38-126) U/L Troponin I < 0.012 (0.000-0.034) ng/mL NT-Pro-B Natriuret Pep (0-900) pg/mL Serum Total Protein (6.3-8.2) g/dL Albumin (3.5-5.0) g/dL Urinalys Dipstick Clnc Urine Color (YELLOW) Urine Appearance (CLEAR) Urine pH (5-6) Ur Specific [place] (1.005-1.025) POC Urine Protein Conf (Negative) Urine Ketones (NEGATIVE) Urine Nitrite (NEGATIVE) Urine Bilirubin (NEGATIVE) Urine Urobilinogen (0-1) mg/dL Urine Leukocytes (NEGATIVE) Urine WBC (Auto) (0-5) /HPF Urine RBC (Auto) (0-2) /HPF U Epithel Cells (Auto) (FEW) /HPF Urine Bacteria (Auto) (NEGATIVE) /HPF Urine RBC (0-5) Xander/ul Urine Mucus (Auto) (NEGATIVE) /HPF Ur Culture Indicated? Urine Glucose (NEGATIVE) mg/dL Influenza Type A Ag (NEGATIVE) Influenza Type B Ag (NEGATIVE) RSV (PCR) (Negative) SARS-CoV-2 (PCR) (NEGATIVE) - Radiology Impressions Radiology Exams & Impressions: Radiology Procedures Category Date Time Status CHEST WITHOUT CONTRAST [CT] Routine Exams 07/13/21 00:38 Completed - Other Procedures and Tests Respiratory Therapy 07/13/21 00:04 Respiratory Therapy Assessment DAILY 07/13/21 02:50 Oxygen Venti-Mask 24% Assessment/Plan (1) COPD exacerbation Current Visit: Yes Status: Acute Assessment & Plan: Patient has improved with IV steroids and IV Zosyn started in ER. Code(s): J44.1 - CHRONIC OBSTRUCTIVE PULMONARY DISEASE W (ACUTE) EXACERBATION (2) Lung nodule < 6cm on CT Current Visit: Yes Status: Acute Assessment & Plan: right upper lobe suspicious lung nodule Code(s): R91.1 - SOLITARY PULMONARY NODULE
[2021-07-13] MEDS ORDERED: NON-FORMULARY ITEM (Albuterol Sulfate [Proair Respiclick] 90 MCG Aer.Pow.Ba) IH PRN (14:38)
[2021-07-13] MEDS ORDERED: VENTOLIN COMMON CANISTER IH PRN (14:42)
[2021-07-13] MEDS ORDERED: MEDICATION INTERVENTION MC SCH (14:45)
[2021-07-13] MEDS: Cardizem CD PO SCH (15:19)
[2021-07-13] MEDS: ECOTRIN 81 MG PO SCH (15:20)
[2021-07-13] MEDS: Nicoderm CQ 21 MG TOP SCH (22:29)
[2021-07-14] MEDS: solu-MEDROL 60 MG, Sterile H2O 10 ml 2 ML IV SCH ×8 (00:22→18:02)
[2021-07-14] MEDS: DUONEB 0.5-3 MG/3 ml Neb IH SCH ×5 (03:17→23:35)
[2021-07-14] MEDS: Ativan 2 MG/1 ML VIAL IV PRN ×5 (04:35→16:16)
[2021-07-14 05:20] LABS: Absolute Neutrophil Ct (ANC) 13.85 x10^3/uL (1.4-6.9); Basophil (Absolute #) 0.02 x10^3/uL (0-0.4); Eosinophil (Absolute #) 0 x10^3/uL (0-0.5); Hematocrit 43.6 % (42-50); Hemoglobin 14.5 g/dL (12.5-18.0); Lymphocyte (Absolute #) 0.68 x10^3/uL (1.0-4.6); Lymphocytes % 4.5 % (24.0-44.0); Mean Corpuscular Hemoglobin 32.6 pg (26-32); Mean Corpuscular Hgb Concent. 33.3 g/dL (32-36); Mean Platelet Volume 9.2 fL (7.5-11.0); Monocyte (Absolute #) 0.41 x10^3/uL (0.0-1.3); Monocytes % 2.7 % (0.0-12.0); Platelet Count 209 x10^3/uL (150-450); Red Blood Count 4.45 x10^6/uL (4.1-5.6); Red Cell Distribution Width 13.2 % (11.5-14.0); White Blood Count 15.1 x10^3/uL (4.0-10.5)
[2021-07-14 05:59] LABS: ALBUMIN 3.1 g/dL (3.5-5.0); ALKALINE PHOSPHATASE 77 U/L (38-126); ANION GAP 8.2 MEQ/L (5-15); BLOOD UREA NITROGEN 6 mg/dL (9-20); CHLORIDE 101 mmol/L (98-107); Calcium 8.5 mg/dL (8.4-10.2); Carbon Dioxide 35 mmol/L (22-30); Creatinine 1 0.43 mg/dL (0.66-1.25); EST GLOMERULAR FILTRATION RATE > 60.0 ML/MIN; Glucose 130 mg/dL (74-106); Potassium 4.8 mmol/L (3.5-5.1); SGOT/AST 36 U/L (17-59); SGPT/ALT 22 U/L (0-50); SODIUM 140 mmol/L (137-145); Total Protein 5.9 g/dL (6.3-8.2)
[2021-07-14] MEDS: PIPERACILLIN/TAZOBACTAM 4.5 GM in Sodium Chloride 100ML MINI-BAG PLUS 100 ML IV SCH ×3 (06:08→21:01)
[2021-07-14] MEDS: Advair Hfa 115/21 Common canister IH SCH ×2 (07:11→18:52)
[2021-07-14] MEDS: TYLENOL EXTRA STRENGTH 500 MG PO PRN ×2 (08:14→13:52)
[2021-07-14] MEDS ORDERED: DILTIAZEM HCL 240 MG PO SCH (10:00)
[2021-07-14] MEDS ORDERED: NON-FORMULARY ITEM (Fluticasone/Umeclidin/Vilanter [Trelegy Ellipta 200-62.5-25] 1 EACH Bl IH SCH (10:00)
[2021-07-14] MEDS: Pepcid 20 MG VIAL IV SCH ×2 (10:41→21:01)
[2021-07-14] MEDS: Cardizem CD PO SCH (10:48)
[2021-07-14] MEDS: Zithromax 500 MG/ 250 ML NaCl Premix 500 MG/250 ML IVPB IV SCH (10:48)
[2021-07-14] MEDS: ECOTRIN 81 MG PO SCH (10:49)
[2021-07-14] MEDS: Singulair 10 MG PO SCH (10:49)
[2021-07-14] MEDS: Nicoderm CQ 21 MG TOP SCH (16:14)
[2021-07-14] MEDS ORDERED: Zofran 4 MG/2 ML VIAL IV PRN (20:23)
[2021-07-15] MEDS: solu-MEDROL 60 MG, Sterile H2O 10 ml 2 ML IV SCH ×10 (01:09→23:41)
[2021-07-15] MEDS: DUONEB 0.5-3 MG/3 ml Neb IH SCH ×7 (03:18→23:02)
[2021-07-15] MEDS: Ativan 2 MG/1 ML VIAL IV PRN ×7 (03:35→17:04)
[2021-07-15 04:52] LABS: Absolute Neutrophil Ct (ANC) 11.57 x10^3/uL (1.4-6.9); Basophil (Absolute #) 0.01 x10^3/uL (0-0.4); Eosinophil (Absolute #) 0 x10^3/uL (0-0.5); Hematocrit 45.7 % (42-50); Hemoglobin 14.5 g/dL (12.5-18.0); Lymphocyte (Absolute #) 0.46 x10^3/uL (1.0-4.6); Lymphocytes % 3.7 % (24.0-44.0); Mean Cell Volume 99.3 fL (78-100); Mean Corpuscular Hemoglobin 31.5 pg (26-32); Mean Corpuscular Hgb Concent. 31.7 g/dL (32-36); Mean Platelet Volume 8.9 fL (7.5-11.0); Monocyte (Absolute #) 0.15 x10^3/uL (0.0-1.3); Monocytes % 1.2 % (0.0-12.0); Neutrophil % 94.2 % (36.0-66.0); Platelet Count 204 x10^3/uL (150-450); White Blood Count 12.3 x10^3/uL (4.0-10.5)
[2021-07-15 05:20] LABS: ALBUMIN 3.2 g/dL (3.5-5.0); ALKALINE PHOSPHATASE 67 U/L (38-126); ANION GAP 8.6 MEQ/L (5-15); BLOOD UREA NITROGEN 8 mg/dL (9-20); CHLORIDE 98 mmol/L (98-107); Calcium 8.3 mg/dL (8.4-10.2); Carbon Dioxide 33 mmol/L (22-30); Creatinine 1 0.44 mg/dL (0.66-1.25); EST GLOMERULAR FILTRATION RATE > 60.0 ML/MIN; Glucose 167 mg/dL (74-106); SGOT/AST 29 U/L (17-59); SGPT/ALT 22 U/L (0-50); SODIUM 136 mmol/L (137-145); Total Protein 5.9 g/dL (6.3-8.2)
[2021-07-15 05:25] LABS: Potassium 3.8 mmol/L (3.5-5.1)
[2021-07-15 05:26] LABS: Slide Review 1 YES
[2021-07-15] MEDS ORDERED: solu-MEDROL ONE (05:50)
[2021-07-15] MEDS: PIPERACILLIN/TAZOBACTAM 4.5 GM in Sodium Chloride 100ML MINI-BAG PLUS 100 ML IV SCH ×3 (05:54→22:39)
[2021-07-15] MEDS: Advair Hfa 115/21 Common canister IH SCH ×2 (06:52→19:59)
[2021-07-15] MEDS: Zithromax 500 MG/ 250 ML NaCl Premix 500 MG/250 ML IVPB IV SCH (08:50)
[2021-07-15] MEDS: Cardizem CD PO SCH (08:51)
[2021-07-15] MEDS: Pepcid 20 MG VIAL IV SCH ×2 (08:51→22:39)
[2021-07-15] MEDS: Singulair 10 MG PO SCH (08:51)
[2021-07-15] MEDS: ECOTRIN 81 MG PO SCH (08:51)
--- NOTE | 2021-07-15 11:58 | XRAY ---
Indication: COPD exacerbation. Comparison: August 02, 2009. More recent CT chest July 13, 2021. Portable chest demonstrates COPD with subtle CT proven right perihilar groundglass airspace disease, small inferior right upper lobe masslike opacity, and tiny left midlung calcified granuloma. Remaining heart and lungs unremarkable. Bony thorax intact.
[2021-07-15] MEDS: Nicoderm CQ 21 MG TOP SCH (22:38)
[2021-07-16] MEDS: DUONEB 0.5-3 MG/3 ml Neb IH SCH ×3 (02:45→10:25)
[2021-07-16] MEDS: PIPERACILLIN/TAZOBACTAM 4.5 GM in Sodium Chloride 100ML MINI-BAG PLUS 100 ML IV SCH (05:37)
[2021-07-16] MEDS: solu-MEDROL 60 MG, Sterile H2O 10 ml 2 ML IV SCH ×2 (05:37)
[2021-07-16] MEDS: Advair Hfa 115/21 Common canister IH SCH (06:53)
--- NOTE | 2021-07-16 07:56 | CONS ---
CONSULT DATE: 07/15/2021 HISTORY: Ayaan Fonseca is a 56-year-old male with a significant smoking history presented to [facility] with complaints of shortness of breath. When questioned, the patient reports that he has had shortness of breath for "The past 20 years". The patient had a CT chest performed that showed changes of chronic obstructive pulmonary disease along with right mid-lung cavitating lung mass concerning for malignancy. He has been experiencing cough productive of thick expectoration. He is being treated with steroids, antibiotics and bronchodilators. The patient is maintaining good oxygen saturation although he reports that he "breaths better with oxygen on". PAST MEDICAL HISTORY: He has history of cardiac problems along with anxiety. PAST SURGICAL HISTORY: No recent surgery. PERSONAL AND SOCIAL HISTORY: He smokes half to one pack of cigarettes a day. He is also is noted to consume a significant amount of alcohol. He is being treated for delirium tremens with benzodiazepine every two hours. MEDICATIONS: Home and current medications are reviewed. ALLERGIES: SHELLFISH (HIVES). PHYSICAL EXAMINATION: This is a middle-aged male who appears mildly tachypneic, appears a bit dazed likely from medication effect. Vital signs noted. HEENT: Normocephalic. Oral exam limited. CVS: First and second heart sounds normal, regular, rhythmic. RESPIRATORY: Shows diminished breath sounds, bilaterally fairly diffuse rhonchi are heard. ABDOMEN: Soft. EXTREMITIES: No edema is noted. LABORATORY DATA AND TESTS: Labs reviewed. White count 10.5, hemoglobin 16.5, hematocrit 48, PLT count 258,000. VBG noted. Sodium 138, potassium 4.4, chloride 96, bicarb 28, BUN 2 and creatinine 0.40. Calcium 8.9. CT chest reviewed. ASSESSMENT: This is a 56-year-old male admitted with: 1) Chronic obstructive pulmonary disease with acute exacerbation. 2) Acute bronchitis. 3) Right mid-lung mass concerning for malignancy. Scheduled for PET scan as outpatient. 4) Nicotine addiction. 5) Alcohol dependence/withdrawal being treated for DT's. RECOMMENDATIONS: 1) I discussed with the patient the need for complete smoking cessation. 1) He is still requesting to let him go out for "a quick smoke". He clearly lacks seriousness of his health problems. 2) I agree with present treatment. 3) I explained to the patient that our goal is to improve his pulmonary symptoms to the point that he is able to lay down for an hour for PET scan. I will be glad to assist him after PET scan to decide the best way to run biopsy. In the meantime, continue treatment for DT's, need for smoking cessation was discussed. Pulmonary function test at a later point when the patient is able to perform. Thank you for allowing me to participate in the care of your patient, Ayaan Fonseca.
[2021-07-16] MEDS: ECOTRIN 81 MG PO SCH (09:42)
[2021-07-16] MEDS: Pepcid 20 MG VIAL IV SCH (09:42)
[2021-07-16] MEDS: Cardizem CD PO SCH (09:43)
[2021-07-16] MEDS: Singulair 10 MG PO SCH (09:43)
[2021-07-16] MEDS: Zithromax 500 MG/ 250 ML NaCl Premix 500 MG/250 ML IVPB IV SCH ×2 (09:43→10:49)
[2021-07-16 12:03] VITALS: BP 157/71; PULSE 83; O2SAT 94
[2021-07-16] MEDS ORDERED: Ativan 1 MG PO PRN (12:30)
[2021-07-16] MEDS ORDERED: DELTASONE 10 MG PO SCH (12:30)
== END 2021-07-16 15:12 | disposition home health service (06) ==
LOC: ED 23:16 → MED SURG 07-13 02:49
PROVIDERS: ADMIT Family Medicine; ATTEND Family Medicine
DX: J44.1 Chronic obstructive pulmonary disease with (acute) exacerbation (principal); J20.9 Acute bronchitis, unspecified; R91.1 Solitary pulmonary nodule; I10 Essential (primary) hypertension; R11.0 Nausea; Z72.0 Tobacco use; Z79.899 Other long term (current) drug therapy
CPT/HCPCS: 0241U; 36000; 36415; 71045; 71250; 80053; 81015; 82805; 83880; 84484; 85025; 87086; 93005; 93041; 93268; 94640; 94760; 94762; 96374; 96375; 97110; 97161; 97530; 99284; G0378; J0456; J2060; J2405; J2543; J2930; A9270-GY

== ENCOUNTER 2021-08-10 14:29 | Emergency (ER) | payer OTHER ==
--- NOTE | 2021-08-10 14:46 | ERPHSYRPT ---
- History of Present Illness Time Seen by Provider: 08/10/21 14:40 Source: patient, family Exam Limitations: no limitations Patient Subjective Stated Complaint: Pt states "I have pain in my chest in my right upper chest and it is hard to breath. We were waiting outside of [facility] for 20 minutes and no one called to help us so we came here." Triage Nursing Assessment: PT presented alert and oriented X 3, skin pwd. pt ambulates with an upright steady gait, able to speak in clear full sentences pt slightly tachypneic. Pt aggitated. Pt had his covid booster a week ago. Physician History: This is a 56-year-old white male patient of Dr. Denson who was recently discharged from the hospital and diagnosed with acute exacerbation of COPD. He was also found to have a right upper lobe lung nodule that was suspicious for infection versus malignancy. During that hospitalization patient saw elementary school principal Dr. Sorenson. Patient has nicotine abuse and is a current smoker of cigarettes daily. He also has alcohol abuse/dependence history. A CT of the chest on 07/13/2021 shows pulmonary emphysema as well as the right upper lobe pulmonary nodule. Earlier this afternoon, the patient noticed right anterior lateral chest pain that was sudden in onset and very localized. Patient was at [facility] and waited for an evaluation. However, he states, no one came to evaluate him and therefore he came to the emergency department. He had serial troponins that all were normal as well. Patient does not and has not seen a intellectual property lawyer. He has a history of hypertension as well. He has not had a fever or new cough. Timing/Duration: today Activities at Onset: none Severity of Dyspnea-Max: moderate Severity of Dyspnea-Current: mild (To moderate) Possible Cause: frequent episodes Modifying Factors: Improves With: activity, coughing Associated Symptoms: anxiety, cough, chest pain/discomfort (Localized right anterior lateral chest wall pain.), painful breathing Allergies/Adverse Reactions: shellfish derived Allergy (Severe, Verified 07/13/21 03:27) Hives Home Medications: Albuterol Sulfate [Proair Respiclick] 4 puffs IH Q4H PRN PRN 07/13/21 [History] Hx Tetanus, Diphtheria Vaccination/Date Given: No Hx Influenza Vaccination/Date Given: No Hx Pneumococcal Vaccination/Date Given: No Immunizations Up to Date: Yes Travel Risk - International Travel Have you traveled outside of the country in past 3 weeks: No - Coronavirus Screening Are you exhibiting any of the following symptoms?: No Close contact with a COVID-19 positive Pt in past 14-21 Days: No - Vaccine Status Have you recieved a Covid-19 vaccination: Yes Division Chair: Unknown - Vaccination Dates Dates if Unknown: 06/24/20 - Review of Systems Constitutional: No Symptoms Eyes: No Symptoms Ears, Nose, & Throat: No Symptoms Respiratory: Dyspnea Cardiac: Chest Pain (Chest wall pain localized right anterolateral) Abdominal/Gastrointestinal: No Symptoms Genitourinary Symptoms: No Symptoms Musculoskeletal: No Symptoms Skin: No Symptoms Neurological: No Symptoms Psychological: No Symptoms Endocrine: No Symptoms Hematologic/Lymphatic: No Symptoms Immunological/Allergic: No Symptoms All Other Systems: Reviewed and Negative - Past Medical History Pertinent Past Medical History: Yes Neurological History: No Pertinent History ENT History: No Pertinent History Cardiac History: Hypertension Respiratory History: Bronchitis, COPD Endocrine Medical History: No Pertinent History Musculoskeletal History: No Pertinent History GI Medical History: No Pertinent History History: No Pertinent History Psycho-Social History: No Pertinent History Male Reproductive Disorders: No Pertinent History - Past Surgical History Past Surgical History: Yes Neuro Surgical History: No Pertinent History Cardiac: No Pertinent History Respiratory: No Pertinent History Gastrointestinal: Hernia Repair Genitourinary: No Pertinent History Musculoskeletal: Orthopedic Surgery Male Surgical History: No Pertinent History Other Surgical History: Left knee repair - Social History Smoking Status: Current every day smoker How long have you smoked: 40 years Exposure to second hand smoke: Yes Drug Use: marijuana Patient Lives Alone: No - Nursing Vital Signs Nursing Vital Signs: Initial Vital Signs Temperature 99.1 F 08/10/21 14:29 Pulse Rate 102 H 08/10/21 14:29 Respiratory Rate 26 H 08/10/21 14:29 Blood Pressure 183/115 08/10/21 14:29 O2 Sat by Pulse Oximetry 89 L 08/10/21 14:29 Pain Scale Pain Intensity 6 - Physical Exam General Appearance: no apparent distress, alert, anxiety Eye Exam: PERRL/EOMI, eyes nml inspection Ears, Nose, Throat Exam: hearing grossly normal, normal ENT inspection, normal pharynx Neck Exam: normal inspection, non-tender, supple, full range of motion Respiratory Exam: normal breath sounds, lungs clear, airway intact, No chest tenderness, No respiratory distress Cardiovascular/Chest Exam: normal heart sounds, regular rate/rhythm Abdominal/Gastrointestinal Exam: soft, normal bowel sounds, No tenderness Rectal Exam: not done Extremity Exam: non-tender, normal range of motion, normal inspection, normal capillary refill, no calf tenderness, no pedal edema, pelvis stable Neurologic Exam: alert, oriented x 3, cooperative, 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 The EKG mentions possible ST elevation in the inferior leads. However, it does not appear to me that he has ST elevation. There was a comparison EKG on 07/13/2021 that showed sinus tachycardia with PVCs right bundle branch block and lafb) Ordered Tests: Active Orders 24 hr Category Date Time Status Test Carrier STAT Care 08/10/21 14:48 Active EKG-ER Only STAT Care 08/10/21 14:47 Active IV Insertion STAT Care 08/10/21 14:47 Active Pulse Oximetry (ED) STAT Care 08/10/21 14:47 Active CHEST 1 VIEW (PORTABLE) Stat Exams 08/10/21 14:48 Taken BLOOD CULTURE Stat Lab 08/10/21 13:15 Received CBC W DIFF Stat Lab 08/10/21 14:56 Completed CMP Stat Lab 08/10/21 14:56 Completed ETHYL ALCOHOL Stat Lab 08/10/21 14:56 Completed NT PRO BNP Stat Lab 08/10/21 14:56 Completed PROTIME WITH INR Stat Lab 08/10/21 14:56 Completed TROPONIN Q3H Lab 08/10/21 14:56 Completed TROPONIN Q3H Lab 08/10/21 18:00 Ordered TROPONIN Q3H Lab 08/10/21 21:00 Ordered TROPONIN Q3H Lab 08/11/21 00:00 Ordered TROPONIN Q3H Lab 08/11/21 03:00 Ordered Respiratory Therapy Assessment DAILY RT 08/10/21 15:19 Active Medication Summary Discontinued Medications Generic Name Dose Route Start Last Admin Trade Name Freq PRN Reason Stop Dose Admin Hydrocodone Bitart/Acetaminophen 1 tab 08/10/21 15:43 08/10/21 15:49 Hydrocodone/Apap 5/325 Mg Tablet PO 08/10/21 15:44 1 tab STAT ONE Administration Hydrocodone Bitart/Acetaminophen Confirm 08/10/21 15:48 Hydrocodone/Apap 5/325 Mg Tablet Administered 08/10/21 15:49 Dose 1 tab .ROUTE .STK-MED ONE Albuterol/Ipratropium Confirm 08/10/21 15:01 Ipratropium/Albuterol Sulfate 3 Ml Ampul.Neb Administered 08/10/21 15:02 Dose 3 ml IH .STK-MED ONE Albuterol/Ipratropium 3 ml 08/10/21 15:16 08/10/21 15:00 Ipratropium/Albuterol Sulfate 3 Ml Ampul.Neb IH 08/10/21 15:17 3 ml STAT ONE Administration Methylprednisolone Sodium 0 mg 08/10/21 14:47 08/10/21 14:59 Succinate 125 mg/ Sterile IV 08/10/21 14:48 125 mg Water 2 ml STAT ONE Administration Methylprednisolone Sodium Succinate Confirm 08/10/21 14:57 Methylprednis Sod Succ 125 Mg/2 Ml Vial Administered 08/10/21 14:58 Dose 125 mg .ROUTE .STK-MED ONE Sterile Water Confirm 08/10/21 14:57 Water For Injection,Sterile 10 Ml Vial Administered 08/10/21 14:58 Dose 10 ml IJ .STK-MED ONE Lab/Rad Data: Laboratory Result Diagrams 08/10/21 14:56 08/10/21 14:56 Laboratory Results 08/10/21 08/10/21 08/10/21 Range/Units 14:56 14:56 14:56 WBC (4.0-10.5) x10^3/uL RBC (4.1-5.6) x10^6/uL Hgb (12.5-18.0) g/dL Hct (42-50) % MCV (78-100) fL MCH (26-32) pg MCHC (32-36) g/dL RDW (11.5-14.0) % Plt Count (150-450) x10^3/uL MPV (7.5-11.0) fL Gran % (36.0-66.0) % Immature Gran % (Auto) (0.00-0.4) % Nucleat RBC Rel Count (0.00-0.1) % Eos # (Auto) (0-0.5) x10^3/uL Immature Gran # (Auto) (0.00-0.03) x10^3u/L Absolute Lymphs (auto) (1.0-4.6) x10^3/uL Absolute Monos (auto) (0.0-1.3) x10^3/uL Absolute Nucleated RBC (0.00-0.01) x10^3u/L Lymphocytes % (24.0-44.0) % Monocytes % (0.0-12.0) % Eosinophils % (0.00-5.0) % Basophils % (0.0-0.4) % Absolute Granulocytes (1.4-6.9) x10^3/uL Basophils # (0-0.4) x10^3/uL PT 10.7 (9.4-12.5) SECONDS INR 1.01 (0.8-3.0) Sodium 138 (137-145) mmol/L Potassium 4.6 (3.5-5.1) mmol/L Chloride 99 (98-107) mmol/L Carbon Dioxide 35 H (22-30) mmol/L Anion Gap 9.0 (5-15) MEQ/L BUN 15 (9-20) mg/dL Creatinine 0.62 L (0.66-1.25) mg/dL Estimated GFR > 60.0 ML/MIN Glucose 119 H (74-106) mg/dL Calcium 9.2 (8.4-10.2) mg/dL Total Bilirubin 0.50 (0.2-1.3) mg/dL AST 16 L (17-59) U/L ALT 18 (0-50) U/L Alkaline Phosphatase 84 (38-126) U/L Troponin I < 0.012 (0.000-0.034) ng/mL NT-Pro-B Natriuret Pep 209 (0-900) pg/mL Serum Total Protein 7.3 (6.3-8.2) g/dL Albumin 4.0 (3.5-5.0) g/dL Ethyl Alcohol < 10 (0-10) mg/dL 08/10/21 Range/Units 14:56 WBC 15.7 H (4.0-10.5) x10^3/uL RBC 4.72 (4.1-5.6) x10^6/uL Hgb 15.1 (12.5-18.0) g/dL Hct 45.8 (42-50) % MCV 97.0 (78-100) fL MCH 32.0 (26-32) pg MCHC 33.0 (32-36) g/dL RDW 12.4 (11.5-14.0) % Plt Count 254 (150-450) x10^3/uL MPV 9.1 (7.5-11.0) fL Gran % 80.6 H (36.0-66.0) % Immature Gran % (Auto) 0.6 H (0.00-0.4) % Nucleat RBC Rel Count 0.0 (0.00-0.1) % Eos # (Auto) 0.12 (0-0.5) x10^3/uL Immature Gran # (Auto) 0.09 H (0.00-0.03) x10^3u/L Absolute Lymphs (auto) 1.05 (1.0-4.6) x10^3/uL Absolute Monos (auto) 1.74 H (0.0-1.3) x10^3/uL Absolute Nucleated RBC 0.00 (0.00-0.01) x10^3u/L Lymphocytes % 6.7 L (24.0-44.0) % Monocytes % 11.1 (0.0-12.0) % Eosinophils % 0.8 (0.00-5.0) % Basophils % 0.2 (0.0-0.4) % Absolute Granulocytes 12.65 H (1.4-6.9) x10^3/uL Basophils # 0.03 (0-0.4) x10^3/uL PT (9.4-12.5) SECONDS INR (0.8-3.0) Sodium (137-145) mmol/L Potassium (3.5-5.1) mmol/L Chloride (98-107) mmol/L Carbon Dioxide (22-30) mmol/L Anion Gap (5-15) MEQ/L BUN (9-20) mg/dL Creatinine (0.66-1.25) mg/dL Estimated GFR ML/MIN Glucose (74-106) mg/dL Calcium (8.4-10.2) mg/dL Total Bilirubin (0.2-1.3) mg/dL AST (17-59) U/L ALT (0-50) U/L Alkaline Phosphatase (38-126) U/L Troponin I (0.000-0.034) ng/mL NT-Pro-B Natriuret Pep (0-900) pg/mL Serum Total Protein (6.3-8.2) g/dL Albumin (3.5-5.0) g/dL Ethyl Alcohol (0-10) mg/dL - Progress Progress: improved, re-examined Air Movement: good Progress Note: 08/10/21 16:26 Chest x-ray shows question of right lower lobe atelectasis versus infiltrate. Medical decision making: This patient is on daily steroids and this could account for the leukocytosis that is present. However, he also has a left shift. The chest x-ray has a questionable right lower lobe infiltrate versus atelectasis. We will treat him with antibiotics. Blood Culture(s) Obtained: Yes Antibiotics given: Yes Counseled pt/family regarding: lab results, diagnosis, need for follow-up, rad results - Departure Departure Disposition: Home Clinical Impression: Right lower lobe pulmonary infiltrate Condition: Stable Critical Care Time: No Referrals: MARINE DENSON MD [Primary Care Provider] - Follow up/PCP as directed Additional Instructions: Drink plenty of fluids. Avoid alcohol ingestion. Avoid nicotine use. Wear your oxygen as prescribed. Continue your steroids as prescribed. Take your antibiotics as prescribed. Follow-up with your primary care physician and elementary school principal for further evaluation and management. Prescriptions: Cefdinir 300 mg PO BID #14 cap
[2021-08-10] MEDS ORDERED: solu-MEDROL 125 MG, Sterile H2O 10 ml 2 ML IV ONE ×2 (14:47)
[2021-08-10 14:57] LABS: Absolute Neutrophil Ct (ANC) 12.65 x10^3/uL (1.4-6.9); Basophil (Absolute #) 0.03 x10^3/uL (0-0.4); Eosinophil % 0.8 % (0.00-5.0); Eosinophil (Absolute #) 0.12 x10^3/uL (0-0.5); Hematocrit 45.8 % (42-50); Hemoglobin 15.1 g/dL (12.5-18.0); Lymphocyte (Absolute #) 1.05 x10^3/uL (1.0-4.6); Lymphocytes % 6.7 % (24.0-44.0); Mean Platelet Volume 9.1 fL (7.5-11.0); Monocyte (Absolute #) 1.74 x10^3/uL (0.0-1.3); Monocytes % 11.1 % (0.0-12.0); Neutrophil % 80.6 % (36.0-66.0); Platelet Count 254 x10^3/uL (150-450); Red Blood Count 4.72 x10^6/uL (4.1-5.6); Red Cell Distribution Width 12.4 % (11.5-14.0); White Blood Count 15.7 x10^3/uL (4.0-10.5)
[2021-08-10] MEDS ORDERED: solu-MEDROL ONE (14:57)
[2021-08-10] MEDS ORDERED: Sterile H2O 10 ml IJ ONE (14:57)
[2021-08-10] MEDS ORDERED: DUONEB 0.5-3 MG/3 ml Neb IH ONE ×2 (15:01→15:16)
[2021-08-10 15:09] LABS: INR 1.01 (0.8-3.0); PROTIME 10.7 SECONDS (9.4-12.5)
[2021-08-10 15:18] LABS: ALKALINE PHOSPHATASE 84 U/L (38-126); BLOOD UREA NITROGEN 15 mg/dL (9-20); CHLORIDE 99 mmol/L (98-107); Calcium 9.2 mg/dL (8.4-10.2); Carbon Dioxide 35 mmol/L (22-30); Creatinine 1 0.62 mg/dL (0.66-1.25); EST GLOMERULAR FILTRATION RATE > 60.0 ML/MIN; ETHYL ALCOHOL < 10 mg/dL (0-10); Glucose 119 mg/dL (74-106); NT PRO BNP 209 pg/mL (0-900); Potassium 4.6 mmol/L (3.5-5.1); SGOT/AST 16 U/L (17-59); SGPT/ALT 18 U/L (0-50); SODIUM 138 mmol/L (137-145); Total Protein 7.3 g/dL (6.3-8.2)
[2021-08-10] MEDS ORDERED: NORCO 5/325 MG PO ONE (15:43)
[2021-08-10] MEDS ORDERED: NORCO 5/325 MG ONE (15:48)
[2021-08-10] MEDS ORDERED: ROCEPHIN 1 Gm-D5w 50 ml Bag** 1 G/50 ML IVPB IV STA (16:26)
--- NOTE | 2021-08-10 16:41 | XRAY ---
Indication: Chest pain and short of breath. Comparison: July 15, 2021. Portable chest demonstrates new right infrahilar interstitial alveolar opacities. Stable CT proven (July 13, 2021) COPD, small right upper lobe masslike opacity, and tiny left lung calcified granuloma. Remaining heart and lungs unremarkable.
[2021-08-10] MEDS ORDERED: ROCEPHIN 1 Gm-D5w 50 ml Bag** 1 G/50 ML IVPB IV ONE (16:43)
[2021-08-10] MEDS ORDERED: Hydromorphone 1 mg/ml Injection IV ONE (17:14)
[2021-08-10] MEDS ORDERED: Zofran 4 MG/2 ML VIAL IV ONE (17:14)
[2021-08-10] MEDS ORDERED: Hydromorphone 1 mg/ml Injection ONE (17:22)
[2021-08-10] MEDS ORDERED: Zofran 4 MG/2 ML VIAL ONE (17:22)
[2021-08-10 17:47] VITALS: BP 160/81; PULSE 78; O2SAT 96
== END 2021-08-10 17:47 | disposition home or self-care (01) ==
LOC: ED 14:29
DX: R91.8 Other nonspecific abnormal finding of lung field (principal); R07.9 Chest pain, unspecified; R05.9 Cough, unspecified; I10 Essential (primary) hypertension; J44.9 Chronic obstructive pulmonary disease, unspecified; Z72.0 Tobacco use; Z79.891 Long term (current) use of opiate analgesic
CPT/HCPCS: 36000; 36415; 71045; 80053; 83880; 84484; 85025; 85610; 87040; 93005; 93041; 94640; 94760; 96365; 96374; 96375; 99285; G0480; 80307; J0696; J1170; J2405; J2930; A9270-GY